=== PATIENT | male | born 1975 | race African-American/Black ===

== ENCOUNTER 2020-02-18 05:28 | Emergency (ER) | payer OTHER ==
[~2020-02-18] VITALS: Ht 172.7 cm; Wt 72.6 kg
[2020-02-18 05:51] VITALS: BP 115/68
[2020-02-18] MEDS ORDERED: HYDROcodone-ACET 5/325MG TAB PO ONE (07:30)
== END 2020-02-18 08:15 | disposition home or self-care (01) ==
LOC: ER 05:28
DX: S16.1XXA Strain of muscle, fascia and tendon at neck level, initial encounter (principal); S39.012A Strain of muscle, fascia and tendon of lower back, initial encounter; V43.62XA Car passenger injured in collision with other type car in traffic accident, initial encounter; Y93.89 Activity, other specified; Y92.488 Other paved roadways as the place of occurrence of the external cause; Y99.8 Other external cause status
CPT/HCPCS: 70450; 72125; 72131